=== PATIENT | female | born 1940 | race Caucasian/White ===

== ENCOUNTER 2017-08-29 17:40 | Emergency (ER) ==
[2017-08-29 17:48] VITALS: BP 148/78; TEMP 96.1; BMI 42.0
--- NOTE | 2017-08-29 17:59 | ED.PDOC ---
General ED Provider: Dr. YON KOVACS JR Chief Complaint: Fall Stated Complaint: FELL DOWN ONE CONCRETE STEP AND THEN HIT BACK OF HEAD ON 2X4. NO LOC OF CONSCIOUSNESS. COMPLAINS OF PAIN TO RIGHT LEG AND HEAD AND RIGHT EAR. 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 Ears, Nose, Mouth, Throat: Reports: No symptoms Respiratory: Reports: No symptoms Cardiac: Reports: No symptoms GI: Reports: No symptoms : Reports: No symptoms Musculoskeletal: Reports: Other Skin: Reports: Bruising, Lesions (occiput with abraison ecchymoses) Neurological: Reports: No symptoms Endocrine: Reports: No symptoms Hematologic/Lymphatic: Reports: No symptoms All Other Systems: Other Past Medical History - Past Medical History Endocrine: Reports: None Cardiovascular: Reports: Hypertension, Other (SVT) Respiratory: Reports: None Hematological: Reports: None Gastrointestinal: Reports: None Genitourinary: Reports: Kidney stones, CKD Neuro/Psych: Reports: Other (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) Musculoskeletal: Reports: Arthritis Cancer: Reports: None Last Menstrual Period: NONE Other Pertinent Past Medical History: FIBROMYALGIA - Surgical History General Surgical History: Reports: Other (pituitary tumor excision) - Family History Family History: Reports: Unknown - Social History Smoking Status: Former smoker Hx Substance Use: No Alcohol Screening: None Physical Exam - Physical Exam Appearance: Well-appearing, Obese Pain Distress: Moderate Eyes: [place], EOMI, Conjunctiva clear ENT: Ears normal, Nose normal, Oropharynx normal Neck: Supple Respiratory: Airway patent, Breath sounds clear, Breath sounds equal, Respirations nonlabored Cardiovascular: RRR, Pulses normal, No rub, No murmur GI/: Soft, Nontender, No masses, Bowel sounds normal, No Organomegaly Musculoskeletal: Normal strength, ROM intact, No edema, No calf tenderness Skin: Warm, Dry, Normal color Neurological: Sensation intact, Motor intact, Reflexes intact, Cranial nerves intact, Alert, Oriented Psychiatric: Affect appropriate, Mood appropriate Critical Care Note - Critical Care Note Total Time (mins): 0 Course - Course Orders, Labs, Meds: Orders Category Date Time Status CT HEAD W/O CONTRAST Stat RADS 08/29/17 17:56 Completed TIBIA/FIBULA, RIGHT 2 VIEW Stat RADS 08/29/17 18:09 Taken Vital Signs: Temp Pulse Resp BP Pulse Ox 08/29/17 17:40 96.1 F L 69 20 148/78 H 96 Departure - Departure Time of Disposition: 19:07 Disposition: HOME SELF-CARE Discharge Problem: Falls Contusion of leg, right Qualifiers: Encounter type: initial encounter Qualified Code(s): S80.11XA - Contusion of right lower leg, initial encounter Head injury without concussion or intracranial hemorrhage Qualifiers: Encounter type: initial encounter Qualified Code(s): S09.90XA - Unspecified injury of head, initial encounter Instructions: Head Injury (ED), Contusion in Adults (ED) Condition: Good Pt referred to PMD for follow-up: Yes Additional Instructions: call PMD for follow up return if mental changes nausea, dizziness of fever NO WEIGHT ON RIGHT LEG FOR THREE DAYS ICE 20 MINUTES THREE TIMES A DAY FOR 2-3 DAYS THE MAY USE WARM SOAKS RECHECK ONE WEEK Prescriptions: Hydrocodone Bit/Acetaminophen [[place] 5-325] 1 - 2 tab PO Q6HR PRN #12 tablet PRN Reason: pain Allergies/Adverse Reactions: Allergies NSAIDS (Non-Steroidal Anti-Inflamma Adverse Reaction (Verified 08/29/17 17:48) prednisone Adverse Reaction (Verified 08/29/17 17:48) Home Medications: Ambulatory Orders Hydrocodone Bit/Acetaminophen [[place] 5-325] 1 - 2 tab PO Q6HR PRN #12 tablet
--- NOTE | 2017-08-29 18:41 | CT ---
EXAM: CT of the head without contrast History: Head trauma. Technique: Multiplanar CT images through the head were obtained without the administration of IV con trast Findings: The visualized paranasal sinuses and mastoid air cells are clear in general. No acute karol varial abnormalities. Small to moderate posterior scalp hematoma. Intracranially the ventricular and cisternal spaces are normal in size, shape and configuration for a patient of this age. No dominant mass or midline shift. No hydrocephalous. No acute intracranial hemorrhage or abnormal extraaxial fluid collections. Impression: 1. No acute intracranial process. 2. Posterior scalp hematoma.
--- NOTE | 2017-08-29 19:32 | DI ---
Exam: Right lower leg two-view History: Fall with leg pain Findings / impression: No bony abnormality of the right lower leg. Minor spurring on the upper pole of the patella.
== END 2017-08-29 19:09 | disposition home or self-care (01) ==
LOC: ED 17:40
DX: S09.90XA Unspecified injury of head, initial encounter (principal); S80.11XA Contusion of right lower leg, initial encounter; W10.9XXA Fall (on) (from) unspecified stairs and steps, initial encounter
CPT/HCPCS: 99283

== ENCOUNTER 2017-09-12 14:02 | Outpatient (CLI) ==
--- NOTE | 2017-09-12 15:09 | US ---
EXAM: Nonvascular ultrasound of the right lower extremity. History: Right lower extremity palpable abnormality. Trauma Technique: Multiple sonographic images through the right lower extremity were obtained. Color duple x Doppler was used to interrogate vascular flow. Findings / impression: Within the subcutaneous soft tissues in the region of interest in the right l ateral proximal lower leg, there is a 2.6 cm x 1.4 cm x 1.9 cm anechoic collection of fluid which is nonspecific but probably represents a hematoma given history of trauma
== END 2017-09-12 14:03 | disposition home or self-care (01) ==
LOC: RAD 14:02
PROVIDERS: ATTEND Emergency Medicine
DX: S80.11XD Contusion of right lower leg, subsequent encounter (principal); M79.604 Pain in right leg
CPT/HCPCS: 76882

== ENCOUNTER 2017-09-26 14:46 | Outpatient (CLI) | payer OTHER ==
--- NOTE | 2017-09-26 15:49 | CT ---
EXAM: CT right lower leg without contrast HISTORY: Contusion of right lower leg, subsequent encounter COMPARISON: Radiograph 08/29/2017 TECHNIQUE: CT right lower leg was performed from the knee to the ankle. Coronal and sagittal reform atted images obtained. FINDINGS: Bone mineralization mildly decreased. No fracture or dislocation. Mild tricompartmental osteoarthritis of the knee with joint space narrowing osteophyte formation. Ankle mortise symmetric. Small plantar calcaneal spur. Mild posterior calcaneal enthesopathy. Mild quadriceps and patellar tendon enthesopathy. There is subcutaneous edema about the lateral aspect of the lower leg and ankl e. There is a 1.6 x 2.0 x 2.7 cm fluid collection in the anterolateral subcutaneous tissues of the p roximal lower leg. Surgical clips are seen in the prepatellar region with mild stranding that is pro bably postsurgical. IMPRESSION: 1. No fracture or dislocation. 2. 2.7 cm fluid collection anterolateral subcutaneous tissues of the proximal lower leg. This probab ly represents a small hematoma or seroma. Findings can be correlated clinically for any evidence of infectious process in this region. 3. Subcutaneous edema and/or cellulitis of the lower leg, centered about the distal lateral lower leg and ankle. 4. Additional chronic and incidental findings as described.
== END 2017-09-26 14:47 | disposition home or self-care (01) ==
LOC: RAD 14:46
PROVIDERS: ATTEND Emergency Medicine
DX: S80.11XD Contusion of right lower leg, subsequent encounter (principal); M79.604 Pain in right leg